=== PATIENT | male | born 1950 | race Caucasian/White ===

== ENCOUNTER 2023-12-13 16:38 | Inpatient (IN) | payer OTHER, MEDICAID ==
[~2023-12-13] VITALS: Ht 182.9 cm; Wt 82.6 kg
[2023-12-13 16:44] VITALS: BP 155/94; PULSE 73; RESP 18; TEMP 98; O2SAT 97
[2023-12-13 17:01] VITALS: O2SAT 98
[2023-12-13 17:17] LABS: BASOPHILS % (AUTO) 0.4 % (0.0-2.0); EOSINOPHILS % (AUTO) 0.1 % (0.0-4.0); HEMATOCRIT 38.7 % (36-52); HEMOGLOBIN 12.2 g/dL (12.0-18.0); LYMPHOCYTES # (AUTO) 1.2 K/uL (2.0-11.5); LYMPHOCYTES % (AUTO) 11.1 % (20.5-51.1); MEAN CORPUSCULAR HEMOGLOBIN 25 pg (27-31); MEAN CORPUSCULAR HGB CONC 32 g/dL (33-37); MEAN CORPUSCULAR VOLUME 79.9 fL (80-94); MONOCYTES % (AUTO) 9.7 % (1.7-9.3); NEUTROPHILS # (AUTO) 8.1 K/uL (1.8-7.7); NEUTROPHILS % (AUTO) 78.7 % (42.2-75.2); PLATELET COUNT (AUTO) 520 K/uL (140-450); RED BLOOD CELL COUNT(AUTO) 4.84 MIL/uL (4.20-6.10); RED CELL DISTRIBUTION WIDTH 17.2 % (11.6-13.7); WHITE BLOOD COUNT (AUTO) 10.3 K/uL (4.8-10.8)
[2023-12-13 17:38] LABS: BILIRUBIN,DIRECT 0.1 mg/dL (0.0-0.3); TOTAL BILIRUBIN 0.3 mg/dL (0.0-1.0); TOTAL PROTEIN, SERUM 7.3 g/dL (6.4-8.2)
[2023-12-13 17:39] LABS: ANION GAP 14.3 (8-16); CALCIUM 8.9 mg/dL (8.5-10.1); CARBON DIOXIDE 24.4 mmol/L (21-32); CHLORIDE 106 mmol/L (98-107); CREATININE 2.4 mg/dL (0.6-1.3); GLUCOSE 135 mg/dL (74-106); SODIUM SERUM 142 mmol/L (136-145); UREA NITROGEN, BLOOD 46 mg/dL (7-18)
[2023-12-13 17:41] LABS: POTASSIUM 2.7 mmol/L (3.5-5.1)
[2023-12-13] MEDS: ONDANSETRON 4 MG/2 ML VIAL IVP ONE (17:50)
[2023-12-13 19:08] VITALS: O2SAT 98
[2023-12-13] MEDS: MINERAL OIL 135 ML ENEM RC ONE (19:20)
[2023-12-13] MEDS ORDERED: ACETAMINOPHEN 325 MG TAB PO PRN (19:25)
[2023-12-13] MEDS ORDERED: IBUPROFEN 400 MG TAB PO PRN (19:25)
[2023-12-13] MEDS ORDERED: ONDANSETRON 4 MG/2 ML VIAL IVP PRN (19:25)
[2023-12-13] MEDS: DEXT 5% /NACL 0.9% 1,000 ML IV SCH (19:25)
[2023-12-13] MEDS ORDERED: DEXTROSE 50% 50 ML SYR IVP PRN (19:30)
[2023-12-13] MEDS: KCL 20 MEQ IN 100 mL PREMIX 200 ML IV ONE (19:34)
[2023-12-13] MEDS: NACL 0.9% 1,000 ML IV ONE (19:52)
[2023-12-13 20:01] LABS: INR 0.89 (0.8-1.2); PARTIAL THROMBOPLASTIN TIME 23.4 secs (22-35.6); PROTHROMBIN TIME 9.5 secs (10.8-13.4)
[2023-12-13] MEDS ORDERED: [UNRECOGNIZED DRUG - CODE] PO (20:08)
[2023-12-13] MEDS ORDERED: ATOR20TA PO (20:08)
[2023-12-13] MEDS ORDERED: SUCR1TAB6 PO (20:08)
[2023-12-13] MEDS ORDERED: QUET25TA PO ×2 (20:08)
[2023-12-13] MEDS ORDERED: FERR-21 PO (20:08)
[2023-12-13] MEDS ORDERED: ASCO500T95 PO (20:08)
[2023-12-13] MEDS ORDERED: ZINC220T3 PO (20:08)
[2023-12-13] MEDS ORDERED: BENA40TA PO (20:08)
[2023-12-13] MEDS ORDERED: SENN1TAB40 PO (20:08)
[2023-12-13] MEDS ORDERED: LORA5SOL77 PO (20:08)
[2023-12-13] MEDS ORDERED: BISA-28 PO (20:08)
[2023-12-13 20:49] LABS: BILIRUBIN,URINE NEGATIVE (NEGATIVE); BLOOD, URINE NEGATIVE (NEGATIVE); COLOR,URINE YELLOW (YELLOW); LEUKOCYTE ESTERASE ,URINE NEGATIVE (NEGATIVE); NITRITE, URINE NEGATIVE (NEGATIVE); PROTEIN,URINE 1+ (NEGATIVE); UGLUCOSE NEGATIVE (NEGATIVE); UROBILINOGEN,URINE 0.2 EU/dL (0.2 - 1)
[2023-12-13 20:53] LABS: APPEARANCE,URINE SLIGHTLY HAZY (CLEAR)
[2023-12-13 21:02] LABS: BACTERIA,URINE 1+ /HPF (None Seen); MUCUS,URINE None Seen /LPF (None Seen); RBC,URINE 0 /HPF (0-5); SQUAMOUS EPITHELIAL CELL,UR 0-3 (FEW) /LPF (0-3 (FEW)); WBC,URINE 0-5 /HPF (0-5)
[2023-12-13 21:28] LABS: LACTIC ACID 2.2 mmol/L (0.4-2.0)
[2023-12-13 21:50] VITALS: PULSE 71; RESP 17; O2SAT 97
[2023-12-13 22:17] VITALS: PULSE 83
[2023-12-13] MEDS: BLOOD GLUCOSE MONITORING 1 DEV DEV FS SCH (23:00)
[2023-12-13] MEDS: NACL 0.9% 500 ML IV SCH (23:46)
[2023-12-14] VITALS: BP 173/87; PULSE 71; PULSE 85; RESP 17; TEMP 96.7; O2SAT 97
[2023-12-14 04:00] VITALS: BP 165/99; PULSE 84; PULSE 95; RESP 18; TEMP 96.9; O2SAT 96
[2023-12-14 05:52] LABS: BASOPHILS # (AUTO) 0.1 K/uL (0.00-0.22); BASOPHILS % (AUTO) 0.4 % (0.0-2.0); EOSINOPHILS # (AUTO) 0.1 K/uL (0-0.4); EOSINOPHILS % (AUTO) 0.4 % (0.0-4.0); HEMATOCRIT 42.4 % (36-52); HEMOGLOBIN 13.2 g/dL (12.0-18.0); LYMPHOCYTES # (AUTO) 0.7 K/uL (2.0-11.5); LYMPHOCYTES % (AUTO) 4.3 % (20.5-51.1); MEAN CORPUSCULAR HEMOGLOBIN 25 pg (27-31); MEAN CORPUSCULAR HGB CONC 31 g/dL (33-37); MEAN CORPUSCULAR VOLUME 80.7 fL (80-94); MONOCYTES # (AUTO) 0.8 K/uL (0.8-1.0); MONOCYTES % (AUTO) 4.7 % (1.7-9.3); NEUTROPHILS # (AUTO) 14.5 K/uL (1.8-7.7); NEUTROPHILS % (AUTO) 90.2 % (42.2-75.2); PLATELET COUNT (AUTO) 557 K/uL (140-450); RED BLOOD CELL COUNT(AUTO) 5.25 MIL/uL (4.20-6.10); RED CELL DISTRIBUTION WIDTH 17.5 % (11.6-13.7); WHITE BLOOD COUNT (AUTO) 16.1 K/uL (4.8-10.8)
[2023-12-14 06:10] LABS: ALANINE AMINOTRANSFERASE 19 U/L (12-78); ALBUMIN 2.9 g/dL (3.4-5.0); ALKALINE PHOSPHATASE 192 U/L (50-136); ANION GAP 15.6 (8-16); ASPARTATE AMINOTRANSFERASE 17 U/L (15-37); CALCIUM 8.9 mg/dL (8.5-10.1); CARBON DIOXIDE 22.5 mmol/L (21-32); CHLORIDE 108 mmol/L (98-107); CREATININE 2.3 mg/dL (0.6-1.3); GLUCOSE 150 mg/dL (74-106); LIPASE 13 U/L (16-77); MAGNESIUM 2.2 mg/dL (1.8-2.4); PHOSPHORUS 2.9 mg/dL (2.5-4.9); POTASSIUM 3.1 mmol/L (3.5-5.1); SODIUM SERUM 143 mmol/L (136-145); TOTAL BILIRUBIN 0.3 mg/dL (0.0-1.0); TOTAL PROTEIN, SERUM 6.8 g/dL (6.4-8.2); UREA NITROGEN, BLOOD 44 mg/dL (7-18)
[2023-12-14 08:00] VITALS: BP 165/97; PULSE 87; PULSE 90; RESP 18; TEMP 96.7; O2SAT 97
[2023-12-14] MEDS: INSULIN LISPRO SLIDING SCALE 100 UNITS/ML VIAL SUBQ PRN (11:54)
[2023-12-14] MEDS: hydrALAZINE 20 MG/ML VIAL IVP PRN (11:56)
[2023-12-14 12:00] VITALS: BP 166/93; PULSE 67; PULSE 88; RESP 16; TEMP 97.1; O2SAT 97
[2023-12-14] MEDS: fentaNYL citrate 0.05 MG/ML VIAL ONE (12:05)
[2023-12-14] MEDS: diphenhydrAMINE 50 MG/ML VIAL ONE (12:05)
[2023-12-14] MEDS: MIDAZOLAM 5 MG/5 ML VIAL ONE (12:06)
[2023-12-14] MEDS: fentaNYL citrate 0.05 MG/ML VIAL IVP ONE (13:00)
[2023-12-14] MEDS: MIDAZOLAM 2 MG/2 ML VIAL IVP ONE (13:00)
[2023-12-14] MEDS: PIPERACILLIN/TAZOBACTAM 2.25 GM in DEXTROSE 5% 50 ML IV SCH ×2 (13:00→16:51)
[2023-12-14] MEDS ORDERED: PIPERACILLIN/TAZOBACTAM 3.375 GM in DEXTROSE 5% 50 ML IV SCH (13:00)
[2023-12-14] MEDS: KCL 20 MEQ IN 100 mL PREMIX 200 ML IV ONE (13:49)
[2023-12-14 16:00] VITALS: BP 138/89; PULSE 96; PULSE 97; RESP 18; TEMP 97.2; O2SAT 96
[2023-12-14] MEDS: cloNIDine-TTS1 0.1 MG/24 HR 1 EA PATCH TD SCH (17:08)
[2023-12-14] MEDS: KCL 20 MEQ IN 100 mL PREMIX 200 ML IV PRN (18:12)
[2023-12-14 20:00] VITALS: BP 131/92; PULSE 101; PULSE 84; PULSE 97; RESP 17; RESP 19; TEMP 97.8; O2SAT 96; O2SAT 99
[2023-12-14] MEDS: QUEtiapine FUMARATE 25 MG TAB PO SCH (20:55)
[2023-12-15] VITALS: BP 122/64; PULSE 101; PULSE 102; RESP 19; TEMP 97.7; O2SAT 96
[2023-12-15 04:00] VITALS: BP 125/79; PULSE 91; PULSE 93; RESP 21; TEMP 97.8; O2SAT 94
[2023-12-15 05:29] LABS: BASOPHILS # (AUTO) 0.2 K/uL (0.00-0.22); BASOPHILS % (AUTO) 1.1 % (0.0-2.0); EOSINOPHILS # (AUTO) 0.1 K/uL (0-0.4); EOSINOPHILS % (AUTO) 0.4 % (0.0-4.0); HEMATOCRIT 36.3 % (36-52); HEMOGLOBIN 11.7 g/dL (12.0-18.0); LYMPHOCYTES # (AUTO) 0.4 K/uL (2.0-11.5); LYMPHOCYTES % (AUTO) 2.8 % (20.5-51.1); MEAN CORPUSCULAR HEMOGLOBIN 26 pg (27-31); MEAN CORPUSCULAR HGB CONC 32 g/dL (33-37); MEAN CORPUSCULAR VOLUME 79.6 fL (80-94); MONOCYTES # (AUTO) 1.3 K/uL (0.8-1.0); NEUTROPHILS # (AUTO) 13.7 K/uL (1.8-7.7); NEUTROPHILS % (AUTO) 87.7 % (42.2-75.2); PLATELET COUNT (AUTO) 489 K/uL (140-450); RED BLOOD CELL COUNT(AUTO) 4.56 MIL/uL (4.20-6.10); WHITE BLOOD COUNT (AUTO) 15.7 K/uL (4.8-10.8)
[2023-12-15 06:04] LABS: ALANINE AMINOTRANSFERASE 16 U/L (12-78); ALBUMIN 2.3 g/dL (3.4-5.0); ALKALINE PHOSPHATASE 145 U/L (50-136); ANION GAP 13.1 (8-16); ASPARTATE AMINOTRANSFERASE 15 U/L (15-37); CALCIUM 8.2 mg/dL (8.5-10.1); CARBON DIOXIDE 22.2 mmol/L (21-32); CHLORIDE 113 mmol/L (98-107); CREATININE 2.3 mg/dL (0.6-1.3); GLUCOSE 179 mg/dL (74-106); LIPASE 12 U/L (16-77); PHOSPHORUS 2.5 mg/dL (2.5-4.9); POTASSIUM 3.3 mmol/L (3.5-5.1); SODIUM SERUM 145 mmol/L (136-145); TOTAL BILIRUBIN 0.3 mg/dL (0.0-1.0); TOTAL PROTEIN, SERUM 5.5 g/dL (6.4-8.2); UREA NITROGEN, BLOOD 48 mg/dL (7-18)
[2023-12-15 08:00] VITALS: BP 135/76; PULSE 84; PULSE 85; PULSE 93; RESP 18; TEMP 97.2; O2SAT 93; O2SAT 94
[2023-12-15] MEDS ORDERED: BENAZEPRIL 10 MG TAB PO SCH (09:00)
[2023-12-15] MEDS: PANTOPRAZOLE 40 MG INJ VIAL IVP SCH (09:01)
[2023-12-15] MEDS: ATORVASTATIN 20 MG TAB PO SCH (09:02)
[2023-12-15 12:00] VITALS: BP 141/84; PULSE 87; PULSE 91; RESP 18; TEMP 97.5; O2SAT 97
[2023-12-15] MEDS: KCL 20 MEQ IN 100 mL PREMIX 100 ML IV SCH (14:46)
[2023-12-15 16:00] VITALS: BP 152/94; PULSE 87; PULSE 91; RESP 18; TEMP 97.7; O2SAT 96
[2023-12-15 20:00] VITALS: BP 156/83; PULSE 88; PULSE 89; RESP 20; TEMP 97; O2SAT 94; O2SAT 96
[2023-12-15] MEDS: ZOLPIDEM 5 MG TAB PO PRN (21:21)
[2023-12-16] VITALS (15 sets, daily range): BP systolic 97–158; BP diastolic 56–102; PULSE 69–114; RESP 15–20; TEMP 96.8–98; O2SAT 94–100
[2023-12-16 06:04] LABS: BASOPHILS % (AUTO) 0.2 % (0.0-2.0); EOSINOPHILS # (AUTO) 0.2 K/uL (0-0.4); EOSINOPHILS % (AUTO) 1.8 % (0.0-4.0); HEMATOCRIT 34.3 % (36-52); LYMPHOCYTES # (AUTO) 0.8 K/uL (2.0-11.5); LYMPHOCYTES % (AUTO) 7.7 % (20.5-51.1); MEAN CORPUSCULAR HEMOGLOBIN 26 pg (27-31); MEAN CORPUSCULAR HGB CONC 32 g/dL (33-37); MEAN CORPUSCULAR VOLUME 80.2 fL (80-94); MONOCYTES % (AUTO) 9.9 % (1.7-9.3); NEUTROPHILS # (AUTO) 7.9 K/uL (1.8-7.7); NEUTROPHILS % (AUTO) 80.4 % (42.2-75.2); PLATELET COUNT (AUTO) 441 K/uL (140-450); RED BLOOD CELL COUNT(AUTO) 4.28 MIL/uL (4.20-6.10); RED CELL DISTRIBUTION WIDTH 17.4 % (11.6-13.7); WHITE BLOOD COUNT (AUTO) 9.8 K/uL (4.8-10.8)
[2023-12-16 06:11] LABS: ALANINE AMINOTRANSFERASE 12 U/L (12-78); ALBUMIN 2.1 g/dL (3.4-5.0); ALKALINE PHOSPHATASE 130 U/L (50-136); ANION GAP 14.1 (8-16); ASPARTATE AMINOTRANSFERASE 14 U/L (15-37); CALCIUM 7.9 mg/dL (8.5-10.1); CARBON DIOXIDE 22.4 mmol/L (21-32); CHLORIDE 117 mmol/L (98-107); CREATININE 1.9 mg/dL (0.6-1.3); GLUCOSE 134 mg/dL (74-106); LIPASE 30 U/L (16-77); MAGNESIUM 1.9 mg/dL (1.8-2.4); PHOSPHORUS 2.5 mg/dL (2.5-4.9); POTASSIUM 3.5 mmol/L (3.5-5.1); SODIUM SERUM 150 mmol/L (136-145); TOTAL BILIRUBIN 0.3 mg/dL (0.0-1.0); TOTAL PROTEIN, SERUM 5.3 g/dL (6.4-8.2); UREA NITROGEN, BLOOD 36 mg/dL (7-18)
[2023-12-16] MEDS: DEXT 5% / NACL 0.45% 1,000 ML IV SCH (09:21)
[2023-12-16] MEDS ORDERED: SUCCINYLCHOLINE CHLORIDE 200 MG/10 ML VIAL IVP ONE (14:00)
[2023-12-16] MEDS ORDERED: ROCURONIUM 50 MG/5 ML VIAL IV ONE (14:00)
[2023-12-16] MEDS ORDERED: PROPOFOL 200 MG/20 ML VIAL IV ONE (14:00)
[2023-12-16] MEDS ORDERED: ONDANSETRON 4 MG/2 ML VIAL ONE (14:00)
[2023-12-16] MEDS ORDERED: ONDANSETRON 4 MG/2 ML VIAL IVP PRN (16:10)
[2023-12-16] MEDS: HYDROmorphone 1 MG/ML AMP IVP PRN (17:49)
[2023-12-16] MEDS: LACTATED RINGERS 1,000 ML IV SCH (18:05)
[2023-12-16] MEDS: LIDOCAINE/EPI 1% 1:100000 20 ML VIAL INJ ONE (18:06)
[2023-12-16] MEDS: BUPIVACAINE-MPF 0.25% 30 ML VIAL INJ ONE (18:06)
[2023-12-16] MEDS ORDERED: ALBUTEROL SULFATE/IPRATROPIU 3 ML SOL IH PRN (19:30)
[2023-12-16] MEDS: ALBUTEROL SULFATE/IPRATROPIU 3 ML SOL IH ONE (19:35)
[2023-12-16 20:38] LABS: BLOOD GAS BASE EXCESS -7.2 mmol/L (-2.0-3.0); BLOOD GAS HCO3 21.9 mmol/L (21.0-28.0); BLOOD GAS PCO2 61.7 mmHg (35.0-48.0); BLOOD GAS PH 7.168 (7.350-7.450); BLOOD GAS PO2 106.5 mmHg (83.0-108.0)
[2023-12-16 20:39] LABS: BLOOD GAS O2 SAT% 97.6 % (94.0-98.0)
[2023-12-16] MEDS: ETOMIDATE 20 MG/10 ML VIAL IVP ONE (21:28)
[2023-12-16] MEDS: SUCCINYLCHOLINE CHLORIDE 200 MG/10 ML VIAL IVP ONE (21:28)
[2023-12-16 21:34] LABS: BASOPHILS % (AUTO) 0.1 % (0.0-2.0); HEMATOCRIT 34.9 % (36-52); HEMOGLOBIN 10.9 g/dL (12.0-18.0); LYMPHOCYTES # (AUTO) 0.2 K/uL (2.0-11.5); LYMPHOCYTES % (AUTO) 1.5 % (20.5-51.1); MEAN CORPUSCULAR HEMOGLOBIN 25 pg (27-31); MEAN CORPUSCULAR HGB CONC 31 g/dL (33-37); MEAN CORPUSCULAR VOLUME 81.3 fL (80-94); MONOCYTES # (AUTO) 0.4 K/uL (0.8-1.0); MONOCYTES % (AUTO) 3.1 % (1.7-9.3); NEUTROPHILS % (AUTO) 95.3 % (42.2-75.2); PLATELET COUNT (AUTO) 426 K/uL (140-450); RED BLOOD CELL COUNT(AUTO) 4.29 MIL/uL (4.20-6.10); RED CELL DISTRIBUTION WIDTH 17.5 % (11.6-13.7); WHITE BLOOD COUNT (AUTO) 12.6 K/uL (4.8-10.8)
[2023-12-16 21:39] LABS: ANION GAP 12.3 (8-16); CALCIUM 7.9 mg/dL (8.5-10.1); CARBON DIOXIDE 23.6 mmol/L (21-32); CHLORIDE 116 mmol/L (98-107); CREATININE 2.2 mg/dL (0.6-1.3); GLUCOSE 158 mg/dL (74-106); POTASSIUM 4.9 mmol/L (3.5-5.1); SODIUM SERUM 147 mmol/L (136-145); UREA NITROGEN, BLOOD 35 mg/dL (7-18)
[2023-12-16 21:49] LABS: LACTIC ACID 1.2 mmol/L (0.4-2.0)
[2023-12-16 22:33] LABS: BLOOD GAS BASE EXCESS -4.2 mmol/L (-2.0-3.0); BLOOD GAS HCO3 19.2 mmol/L (21.0-28.0); BLOOD GAS PCO2 31.7 mmHg (35.0-48.0); BLOOD GAS PH 7.401 (7.350-7.450); BLOOD GAS PO2 81.5 mmHg (83.0-108.0)
[2023-12-16 22:34] LABS: BLOOD GAS O2 SAT% 96.8 % (94.0-98.0)
[2023-12-16] MEDS: PROPOFOL 1000 MG/100 ML PREMIX 100 ML IV SCH (23:24)
[2023-12-17] VITALS (37 sets, daily range): BP systolic 103–170; BP diastolic 60–97; PULSE 62–84; RESP 18–23; TEMP 97.4–98.1; O2SAT 96–100
[2023-12-17 06:10] LABS: HEMATOCRIT 29.6 % (36-52); HEMOGLOBIN 9.5 g/dL (12.0-18.0); LYMPHOCYTES # (AUTO) 0.6 K/uL (2.0-11.5); LYMPHOCYTES % (AUTO) 5.6 % (20.5-51.1); MEAN CORPUSCULAR HEMOGLOBIN 26 pg (27-31); MEAN CORPUSCULAR HGB CONC 32 g/dL (33-37); MEAN CORPUSCULAR VOLUME 79.7 fL (80-94); MONOCYTES # (AUTO) 0.7 K/uL (0.8-1.0); MONOCYTES % (AUTO) 6.4 % (1.7-9.3); NEUTROPHILS # (AUTO) 9.5 K/uL (1.8-7.7); PLATELET COUNT (AUTO) 375 K/uL (140-450); RED BLOOD CELL COUNT(AUTO) 3.71 MIL/uL (4.20-6.10); RED CELL DISTRIBUTION WIDTH 17.4 % (11.6-13.7); WHITE BLOOD COUNT (AUTO) 10.8 K/uL (4.8-10.8)
[2023-12-17 07:09] LABS: ALANINE AMINOTRANSFERASE 15 U/L (12-78); ALBUMIN 1.8 g/dL (3.4-5.0); ALKALINE PHOSPHATASE 109 U/L (50-136); ANION GAP 11.6 (8-16); ASPARTATE AMINOTRANSFERASE 16 U/L (15-37); CARBON DIOXIDE 23.8 mmol/L (21-32); CHLORIDE 117 mmol/L (98-107); CREATININE 2.3 mg/dL (0.6-1.3); GLUCOSE 119 mg/dL (74-106); LIPASE 46 U/L (16-77); MAGNESIUM 1.5 mg/dL (1.8-2.4); PHOSPHORUS 2.9 mg/dL (2.5-4.9); POTASSIUM 4.4 mmol/L (3.5-5.1); SODIUM SERUM 148 mmol/L (136-145); TOTAL BILIRUBIN 0.2 mg/dL (0.0-1.0); TOTAL PROTEIN, SERUM 4.6 g/dL (6.4-8.2); UREA NITROGEN, BLOOD 38 mg/dL (7-18)
[2023-12-17] MEDS: DEXT 5% / NACL 0.45% 1,000 ML IV SCH (08:52)
[2023-12-17] MEDS ORDERED: TPN PER PHARMACY MC PRN (09:40)
[2023-12-17] MEDS: BLOOD GLUCOSE MONITORING 1 DEV DEV FS SCH (12:05)
[2023-12-17] MEDS: PROPOFOL 1000 MG/100 ML PREMIX 100 ML IV PRN (17:01)
[2023-12-17] MEDS: MULTIVITAMIN-12 10 ML in DEXTROSE 50% 600 ML, AMINO ACIDS 8.5% 600 ML, FAT EMULSION 20%... IV SCH (20:17)
[2023-12-17] MEDS: MAG SULF 2000 MG/WATER PREMIX 50 ML IV PRN (23:38)
[2023-12-18] VITALS (33 sets, daily range): BP systolic 98–171; BP diastolic 63–110; PULSE 59–86; RESP 19–25; TEMP 96.9–98; O2SAT 96–100
[2023-12-18 05:32] LABS: BASOPHILS % (AUTO) 0.1 % (0.0-2.0); EOSINOPHILS # (AUTO) 0.2 K/uL (0-0.4); HEMATOCRIT 29.9 % (36-52); HEMOGLOBIN 9.6 g/dL (12.0-18.0); LYMPHOCYTES # (AUTO) 0.9 K/uL (2.0-11.5); LYMPHOCYTES % (AUTO) 8.9 % (20.5-51.1); MEAN CORPUSCULAR HEMOGLOBIN 26 pg (27-31); MEAN CORPUSCULAR HGB CONC 32 g/dL (33-37); MEAN CORPUSCULAR VOLUME 79.9 fL (80-94); MONOCYTES # (AUTO) 0.8 K/uL (0.8-1.0); MONOCYTES % (AUTO) 7.6 % (1.7-9.3); NEUTROPHILS # (AUTO) 8.7 K/uL (1.8-7.7); NEUTROPHILS % (AUTO) 81.4 % (42.2-75.2); PLATELET COUNT (AUTO) 390 K/uL (140-450); RED BLOOD CELL COUNT(AUTO) 3.75 MIL/uL (4.20-6.10); RED CELL DISTRIBUTION WIDTH 17.3 % (11.6-13.7); WHITE BLOOD COUNT (AUTO) 10.7 K/uL (4.8-10.8)
[2023-12-18 06:10] LABS: ALANINE AMINOTRANSFERASE 13 U/L (12-78); ALBUMIN 1.6 g/dL (3.4-5.0); ALKALINE PHOSPHATASE 100 U/L (50-136); ANION GAP 11.9 (8-16); ASPARTATE AMINOTRANSFERASE 16 U/L (15-37); CALCIUM 7.4 mg/dL (8.5-10.1); CARBON DIOXIDE 23.4 mmol/L (21-32); CHLORIDE 114 mmol/L (98-107); CREATININE 2.3 mg/dL (0.6-1.3); GLUCOSE 144 mg/dL (74-106); LIPASE 123 U/L (16-77); MAGNESIUM 2.2 mg/dL (1.8-2.4); PHOSPHORUS 2.5 mg/dL (2.5-4.9); POTASSIUM 3.3 mmol/L (3.5-5.1); SODIUM SERUM 146 mmol/L (136-145); TOTAL BILIRUBIN 0.2 mg/dL (0.0-1.0); TOTAL PROTEIN, SERUM 4.2 g/dL (6.4-8.2); UREA NITROGEN, BLOOD 37 mg/dL (7-18)
[2023-12-18] MEDS: KCL 20 MEQ IN 100 mL PREMIX 200 ML IV SCH (10:11)
[2023-12-18 14:03] LABS: BLOOD GAS BASE EXCESS -5.1 mmol/L (-2.0-3.0); BLOOD GAS PCO2 23.8 mmHg (35.0-48.0); BLOOD GAS PH 7.472 (7.350-7.450); BLOOD GAS PO2 86.9 mmHg (83.0-108.0)
[2023-12-18 14:04] LABS: BLOOD GAS O2 SAT% 97.2 % (94.0-98.0)
[2023-12-18] MEDS: MORPHINE SULFATE 2 MG/ML SYR IVP PRN (17:27)
[2023-12-18] MEDS: AMINO ACIDS IV SCH (20:29)
[2023-12-18] MEDS: MULTIVITAMIN IV SCH (20:29)
[2023-12-18] MEDS: [UNRECOGNIZED DRUG - OTHER] IV SCH (20:29)
[2023-12-18] MEDS: DEXTROSE IV SCH (20:29)
[2023-12-19] VITALS (20 sets, daily range): BP systolic 132–168; BP diastolic 72–97; PULSE 65–86; RESP 18–27; TEMP 97.4–98.6; O2SAT 96–100
[2023-12-19 05:19] LABS: ANION GAP 10.6 (8-16); CALCIUM 7.5 mg/dL (8.5-10.1); CARBON DIOXIDE 24.9 mmol/L (21-32); CHLORIDE 112 mmol/L (98-107); CREATININE 1.8 mg/dL (0.6-1.3); GLUCOSE 138 mg/dL (74-106); POTASSIUM 3.5 mmol/L (3.5-5.1); SODIUM SERUM 144 mmol/L (136-145); UREA NITROGEN, BLOOD 29 mg/dL (7-18)
[2023-12-19 05:30] LABS: MAGNESIUM 2.1 mg/dL (1.8-2.4)
[2023-12-19 08:11] LABS: BASOPHILS % (AUTO) 0.2 % (0.0-2.0); EOSINOPHILS # (AUTO) 0.4 K/uL (0-0.4); EOSINOPHILS % (AUTO) 4.1 % (0.0-4.0); HEMATOCRIT 32.3 % (36-52); HEMOGLOBIN 10.1 g/dL (12.0-18.0); LYMPHOCYTES % (AUTO) 9.8 % (20.5-51.1); MEAN CORPUSCULAR HEMOGLOBIN 25 pg (27-31); MEAN CORPUSCULAR HGB CONC 31 g/dL (33-37); MEAN CORPUSCULAR VOLUME 80.2 fL (80-94); MONOCYTES # (AUTO) 0.8 K/uL (0.8-1.0); MONOCYTES % (AUTO) 8.4 % (1.7-9.3); NEUTROPHILS # (AUTO) 7.7 K/uL (1.8-7.7); NEUTROPHILS % (AUTO) 77.5 % (42.2-75.2); PLATELET COUNT (AUTO) 353 K/uL (140-450); RED BLOOD CELL COUNT(AUTO) 4.03 MIL/uL (4.20-6.10); RED CELL DISTRIBUTION WIDTH 17.5 % (11.6-13.7); WHITE BLOOD COUNT (AUTO) 9.9 K/uL (4.8-10.8)
[2023-12-19] MEDS: MULTIVITAMIN-12 10 ML in DEXTROSE 50% 760 ML, AMINO ACIDS 8.5% 760 ML, FAT EMULSION 20%... IV SCH (19:46)
[2023-12-20] VITALS (7 sets, daily range): BP systolic 133–156; BP diastolic 84–89; PULSE 70–82; RESP 18–20; TEMP 97.1–98.4; O2SAT 93–99
[2023-12-20 05:23] LABS: ANION GAP 11.1 (8-16); CALCIUM 7.6 mg/dL (8.5-10.1); CARBON DIOXIDE 24.4 mmol/L (21-32); CHLORIDE 107 mmol/L (98-107); CREATININE 1.6 mg/dL (0.6-1.3); GLUCOSE 143 mg/dL (74-106); POTASSIUM 3.5 mmol/L (3.5-5.1); SODIUM SERUM 139 mmol/L (136-145); UREA NITROGEN, BLOOD 24 mg/dL (7-18)
[2023-12-20 05:25] LABS: PHOSPHORUS 3.6 mg/dL (2.5-4.9)
[2023-12-20 09:59] LABS: BASOPHILS % (AUTO) 0.4 % (0.0-2.0); EOSINOPHILS # (AUTO) 0.5 K/uL (0-0.4); EOSINOPHILS % (AUTO) 4.5 % (0.0-4.0); HEMATOCRIT 34.2 % (36-52); HEMOGLOBIN 10.8 g/dL (12.0-18.0); LYMPHOCYTES # (AUTO) 0.9 K/uL (2.0-11.5); LYMPHOCYTES % (AUTO) 8.8 % (20.5-51.1); MEAN CORPUSCULAR HEMOGLOBIN 25 pg (27-31); MEAN CORPUSCULAR HGB CONC 32 g/dL (33-37); MEAN CORPUSCULAR VOLUME 79.8 fL (80-94); MONOCYTES % (AUTO) 9.3 % (1.7-9.3); NEUTROPHILS # (AUTO) 7.9 K/uL (1.8-7.7); PLATELET COUNT (AUTO) 373 K/uL (140-450); RED BLOOD CELL COUNT(AUTO) 4.29 MIL/uL (4.20-6.10); WHITE BLOOD COUNT (AUTO) 10.3 K/uL (4.8-10.8)
[2023-12-20] MEDS: DEXTROSE IV SCH (20:08)
[2023-12-20] MEDS: AMINO ACIDS IV SCH (20:08)
[2023-12-20] MEDS: MULTIVITAMIN IV SCH (20:08)
[2023-12-20] MEDS: [UNRECOGNIZED DRUG - OTHER] IV SCH (20:08)
[2023-12-21] VITALS (11 sets, daily range): BP systolic 124–157; BP diastolic 60–90; PULSE 66–88; RESP 18–20; TEMP 96.9–98.3; O2SAT 91–98
[2023-12-21 05:20] LABS: BASOPHILS % (AUTO) 0.3 % (0.0-2.0); EOSINOPHILS # (AUTO) 0.4 K/uL (0-0.4); HEMATOCRIT 35.9 % (36-52); HEMOGLOBIN 11.3 g/dL (12.0-18.0); LYMPHOCYTES # (AUTO) 1.1 K/uL (2.0-11.5); LYMPHOCYTES % (AUTO) 9.1 % (20.5-51.1); MEAN CORPUSCULAR HEMOGLOBIN 25 pg (27-31); MEAN CORPUSCULAR HGB CONC 32 g/dL (33-37); MEAN CORPUSCULAR VOLUME 79.4 fL (80-94); MONOCYTES % (AUTO) 7.7 % (1.7-9.3); NEUTROPHILS % (AUTO) 79.9 % (42.2-75.2); PLATELET COUNT (AUTO) 367 K/uL (140-450); RED BLOOD CELL COUNT(AUTO) 4.52 MIL/uL (4.20-6.10); RED CELL DISTRIBUTION WIDTH 16.4 % (11.6-13.7); WHITE BLOOD COUNT (AUTO) 12.5 K/uL (4.8-10.8)
[2023-12-21 07:07] LABS: CALCIUM 7.4 mg/dL (8.5-10.1); CARBON DIOXIDE 22.2 mmol/L (21-32); CHLORIDE 105 mmol/L (98-107); CREATININE 1.5 mg/dL (0.6-1.3); GLUCOSE 159 mg/dL (74-106); POTASSIUM 3.2 mmol/L (3.5-5.1); SODIUM SERUM 138 mmol/L (136-145); UREA NITROGEN, BLOOD 20 mg/dL (7-18)
[2023-12-21 07:41] LABS: MAGNESIUM 1.9 mg/dL (1.8-2.4)
[2023-12-21 08:22] LABS: ALBUMIN 1.6 g/dL (3.4-5.0); TOTAL BILIRUBIN 0.2 mg/dL (0.0-1.0); TOTAL PROTEIN, SERUM 4.9 g/dL (6.4-8.2)
[2023-12-21 08:27] LABS: PHOSPHORUS 3.7 mg/dL (2.5-4.9)
[2023-12-21] MEDS: POTASSIUM CHLORIDE 10 MEQ TABER PO SCH (09:48)
[2023-12-21] MEDS: PROPOFOL 200 MG/20 ML VIAL IV ONE (20:55)
[2023-12-21] MEDS: fentaNYL citrate 0.05 MG/ML VIAL ONE (20:55)
[2023-12-21] MEDS: SUCCINYLCHOLINE CHLORIDE 200 MG/10 ML VIAL IVP ONE (20:56)
[2023-12-21] MEDS: ROCURONIUM 50 MG/5 ML VIAL IV ONE (20:56)
[2023-12-21] MEDS: ePHEDrine 50 MG/ML VIAL ONE (20:57)
[2023-12-21] MEDS: HYDROmorphone PFS 2 MG/ML SYR ONE (20:57)
[2023-12-21] MEDS: DEXAMETHASONE 4 MG/ML VIAL ONE ×2 (20:58→20:59)
[2023-12-21] MEDS: SUGAMMADEX SODIUM 200 MG/2 ML VIAL IV ONE (20:58)
[2023-12-21] MEDS: ONDANSETRON 4 MG/2 ML VIAL ONE (20:59)
[2023-12-22] VITALS (9 sets, daily range): BP systolic 119–142; BP diastolic 66–85; PULSE 73–93; RESP 16–20; TEMP 96.7–98.5; O2SAT 89–99
[2023-12-22 05:50] LABS: BASOPHILS % (AUTO) 0.3 % (0.0-2.0); EOSINOPHILS # (AUTO) 0.4 K/uL (0-0.4); EOSINOPHILS % (AUTO) 3.2 % (0.0-4.0); HEMATOCRIT 32.8 % (36-52); HEMOGLOBIN 10.5 g/dL (12.0-18.0); LYMPHOCYTES # (AUTO) 1.1 K/uL (2.0-11.5); LYMPHOCYTES % (AUTO) 9.2 % (20.5-51.1); MEAN CORPUSCULAR HEMOGLOBIN 25 pg (27-31); MEAN CORPUSCULAR HGB CONC 32 g/dL (33-37); MEAN CORPUSCULAR VOLUME 78.6 fL (80-94); MONOCYTES # (AUTO) 0.9 K/uL (0.8-1.0); MONOCYTES % (AUTO) 7.7 % (1.7-9.3); NEUTROPHILS # (AUTO) 9.6 K/uL (1.8-7.7); NEUTROPHILS % (AUTO) 79.6 % (42.2-75.2); PLATELET COUNT (AUTO) 354 K/uL (140-450); RED BLOOD CELL COUNT(AUTO) 4.18 MIL/uL (4.20-6.10); RED CELL DISTRIBUTION WIDTH 16.2 % (11.6-13.7); WHITE BLOOD COUNT (AUTO) 12.1 K/uL (4.8-10.8)
[2023-12-22 06:53] LABS: PHOSPHORUS 3.6 mg/dL (2.5-4.9)
[2023-12-22 06:57] LABS: ALANINE AMINOTRANSFERASE 24 U/L (12-78); ALBUMIN 1.5 g/dL (3.4-5.0); ALKALINE PHOSPHATASE 140 U/L (50-136); ANION GAP 0.3 (8-16); ASPARTATE AMINOTRANSFERASE 21 U/L (15-37); CALCIUM 7.5 mg/dL (8.5-10.1); CARBON DIOXIDE 25.7 mmol/L (21-32); CHLORIDE 105 mmol/L (98-107); CREATININE 1.6 mg/dL (0.6-1.3); GLUCOSE 155 mg/dL (74-106); SODIUM SERUM 128 mmol/L (136-145); TOTAL BILIRUBIN 0.2 mg/dL (0.0-1.0); TOTAL PROTEIN, SERUM 4.6 g/dL (6.4-8.2); UREA NITROGEN, BLOOD 23 mg/dL (7-18)
[2023-12-22 08:47] LABS: ANION GAP 10.8 (8-16); CALCIUM 7.5 mg/dL (8.5-10.1); CHLORIDE 107 mmol/L (98-107); CREATININE 1.6 mg/dL (0.6-1.3); GLUCOSE 171 mg/dL (74-106); SODIUM SERUM 139 mmol/L (136-145); UREA NITROGEN, BLOOD 23 mg/dL (7-18)
[2023-12-22 09:40] LABS: CARBON DIOXIDE 27.8 mmol/L (21-32)
[2023-12-22] MEDS: KCL 20 MEQ IN 100 mL PREMIX 200 ML IV SCH (10:09)
[2023-12-22] MEDS ORDERED: CLON1PAT6 TD (17:45)
[2023-12-23 01:54] VITALS: O2SAT 94
[2023-12-23 05:10] VITALS: O2SAT 95
[2023-12-23 05:27] LABS: BASOPHILS % (AUTO) 0.4 % (0.0-2.0); EOSINOPHILS # (AUTO) 0.4 K/uL (0-0.4); EOSINOPHILS % (AUTO) 3.8 % (0.0-4.0); HEMATOCRIT 29.7 % (36-52); HEMOGLOBIN 9.6 g/dL (12.0-18.0); LYMPHOCYTES # (AUTO) 1.2 K/uL (2.0-11.5); LYMPHOCYTES % (AUTO) 11.4 % (20.5-51.1); MEAN CORPUSCULAR HEMOGLOBIN 25 pg (27-31); MEAN CORPUSCULAR HGB CONC 32 g/dL (33-37); MEAN CORPUSCULAR VOLUME 78.5 fL (80-94); MONOCYTES # (AUTO) 0.9 K/uL (0.8-1.0); MONOCYTES % (AUTO) 8.4 % (1.7-9.3); NEUTROPHILS # (AUTO) 7.7 K/uL (1.8-7.7); PLATELET COUNT (AUTO) 345 K/uL (140-450); RED BLOOD CELL COUNT(AUTO) 3.78 MIL/uL (4.20-6.10); RED CELL DISTRIBUTION WIDTH 16.4 % (11.6-13.7); WHITE BLOOD COUNT (AUTO) 10.1 K/uL (4.8-10.8)
[2023-12-23 07:01] LABS: ALANINE AMINOTRANSFERASE 38 U/L (12-78); ALBUMIN 1.4 g/dL (3.4-5.0); ALKALINE PHOSPHATASE 134 U/L (50-136); ANION GAP 10.4 (8-16); ASPARTATE AMINOTRANSFERASE 30 U/L (15-37); CALCIUM 7.4 mg/dL (8.5-10.1); CARBON DIOXIDE 27.6 mmol/L (21-32); CHLORIDE 106 mmol/L (98-107); CREATININE 1.6 mg/dL (0.6-1.3); GLUCOSE 147 mg/dL (74-106); SODIUM SERUM 141 mmol/L (136-145); TOTAL BILIRUBIN 0.1 mg/dL (0.0-1.0); TOTAL PROTEIN, SERUM 4.6 g/dL (6.4-8.2); UREA NITROGEN, BLOOD 27 mg/dL (7-18)
[2023-12-23 07:13] LABS: PHOSPHORUS 3.3 mg/dL (2.5-4.9)
[2023-12-23] MEDS ORDERED: POTASSIUM CHL 40 MEQ/ D5-1/2NS 1,000 ML IV SCH (07:20)
[2023-12-23 08:00] VITALS: BP 105/70; PULSE 77; RESP 18; TEMP 98.8; O2SAT 96
[2023-12-23] MEDS: POTASSIUM CHLORIDE 40 MEQ, LIDOCAINE 1% 25 MG in NACL 0.9% 250 ML IV ONE (09:39)
[2023-12-23 13:58] VITALS: BP 105/70; PULSE 77; RESP 18; TEMP 98.8
== END 2023-12-23 17:45 | DRG 329 ==
LOC: MED 16:38 → MTU 19:25 → MIC 12-16 17:41 → MTU 12-19 16:24
PROVIDERS: ADMIT Student in an Organized Health Care Education/Training Program; ATTEND Student in an Organized Health Care Education/Training Program
PROC: 0DBN8ZX Excision of Sigmoid Colon, Via Natural or Artificial Opening Endoscopic, Diagnostic (ICD-10-PCS; 2023-12-14)
PROC: 0D1N0Z4 Bypass Sigmoid Colon to Cutaneous, Open Approach (ICD-10-PCS; 2023-12-16)
PROC: 5A1945Z Respiratory Ventilation, 24-96 Consecutive Hours (ICD-10-PCS; 2023-12-16)
PROC: 0BH17EZ Insertion of Endotracheal Airway into Trachea, Via Natural or Artificial Opening (ICD-10-PCS; 2023-12-16)
PROC: 0DBN0ZZ Excision of Sigmoid Colon, Open Approach (ICD-10-PCS; principal; 2023-12-16 14:00)
PROC: 02HV33Z Insertion of Infusion Device into Superior Vena Cava, Percutaneous Approach (ICD-10-PCS; 2023-12-17)
DX: C19 Malignant neoplasm of rectosigmoid junction (principal); J69.0 Pneumonitis due to inhalation of food and vomit; J96.00 Acute respiratory failure, unspecified whether with hypoxia or hypercapnia; N17.0 Acute kidney failure with tubular necrosis; K56.691 Other complete intestinal obstruction; E87.20 Acidosis, unspecified; E44.0 Moderate protein-calorie malnutrition; E87.0 Hyperosmolality and hypernatremia; E87.6 Hypokalemia; D64.9 Anemia, unspecified; E83.42 Hypomagnesemia; F03.90 Unspecified dementia, unspecified severity, without behavioral disturbance, psychotic disturbance, mood disturbance, and anxiety; Z93.3 Colostomy status; Z79.899 Other long term (current) drug therapy; Z68.24 Body mass index [BMI] 24.0-24.9, adult
CPT/HCPCS: 31500; 36415; 36600; 45330; 71045; 74018; 76770; 80048; 80053; 80076; 81001; 82040; 82378; 82803; 82948; 83605; 83690; 83735; 84100; 84478; 84484; 85025; 85610; 85730; 86886; 86900; 86901; 87040; 87070; 87081; 87086; 87205; 88305; 88309; 88313; 88342; 92526; 94002; 94003; 94640; 96365; 96375; 97110; 97163-GP; 97530; 99285; A9153; J0330; J0360; J1100; J1171; J1200; J1815; J2001; J2003; J2250; J2270; J2405; J2470; J2543; J2704; J3010; J3475; J3480; J3490; J7030; J7060; J7120; Q0092

== ENCOUNTER 2023-12-26 01:31 | Emergency (ER) | payer OTHER, MEDICAID ==
[~2023-12-26] VITALS: Ht 182.9 cm; Wt 90.7 kg
[~2023-12-26 01:31] MED LIST: ASCO500T95 PO; ATOR20TA PO; BENA40TA PO; BISA-28 PO; CLON1PAT6 TD; FERR-21 PO; LORA5SOL77 PO; QUET25TA PO; SENN1TAB40 PO; SUCR1TAB6 PO; ZINC220T3 PO; [UNRECOGNIZED DRUG - CODE] PO
[2023-12-26 01:37] VITALS: BP 160/96; PULSE 74; RESP 18; TEMP 99.1; O2SAT 97
[2023-12-26 06:52] VITALS: BP 145/78; PULSE 74; RESP 18; TEMP 99.1; O2SAT 97
== END 2023-12-26 06:51 | disposition home or self-care (01) ==
LOC: MED 01:31
DX: K56.609 Unspecified intestinal obstruction, unspecified as to partial versus complete obstruction (principal); I10 Essential (primary) hypertension; F03.90 Unspecified dementia, unspecified severity, without behavioral disturbance, psychotic disturbance, mood disturbance, and anxiety; Z87.448 Personal history of other diseases of urinary system; Z79.899 Other long term (current) drug therapy
CPT/HCPCS: 99284